=== PATIENT | male | born 1990 | race Caucasian/White ===

== ENCOUNTER 2020-06-05 00:12 | Emergency (ER) | payer MEDICAID, SELFPAY ==
--- NOTE | ~2020-06-05 | XR_ITS ---
EXAMINATION: RIGHT ANKLE AND RIGHT FOOT CLINICAL INFORMATION: Status post fall with pain COMPARISON: None TECHNIQUE: 2 views right ankle, 3 views right foot FINDINGS: Ankle: There has been prior surgery with a plate and screw device in the distal fibula and 2 screws through the medial malleolus. Some mild soft tissue swelling bilaterally but no acute fracture or ankle mortise instability is seen. Right foot: No fractures are seen. No significant arthritic changes are detected. XR/XR foot RT min 3V IMPRESSION: Postoperative changes ankle. No evidence of an acute injury.
--- NOTE | ~2020-06-05 | XR_ITS ---
EXAMINATION: RIGHT ANKLE AND RIGHT FOOT CLINICAL INFORMATION: Status post fall with pain COMPARISON: None TECHNIQUE: 2 views right ankle, 3 views right foot FINDINGS: Ankle: There has been prior surgery with a plate and screw device in the distal fibula and 2 screws through the medial malleolus. Some mild soft tissue swelling bilaterally but no acute fracture or ankle mortise instability is seen. Right foot: No fractures are seen. No significant arthritic changes are detected. XR/XR ankle RT min 3V IMPRESSION: Postoperative changes ankle. No evidence of an acute injury.
--- NOTE | ~2020-06-05 | CT_ITS ---
EXAMINATION: CT HEAD WITHOUT CONTRAST CLINICAL INFORMATION: Head trauma and syncope COMPARISON: None TECHNIQUE: Contiguous axial imaging was performed from the skull base to vertex without intravenous administration of contrast. This CT examination was performed using dose optimization techniques as appropriate, variously including the following: *Automated exposure control *Adjustment of mA and/or kV according to patient size (this includes techniques or standardized protocols for targeted exams where dose is matched to indication/reason for exam; i.e. extremities or head) *Use of iterative reconstruction technique DLP: 743 mGy-cm FINDINGS: There is no evidence of acute intracranial hemorrhage or territorial infarction. No abnormal mass effect or midline shift is seen. [place] to white matter differentiation is well preserved. No extra-axial fluid collections are identified. The ventricles are normal in size. There is no abnormal attenuation within the brain parenchyma. The osseous structures and soft tissues are normal. The mastoid air cells and visualized portions of the paranasal sinuses are well aerated. CT/CT head/brain wo con IMPRESSION: No acute intracranial pathology.
[2020-06-05 00:21] VITALS: PULSE 103; RESP 16; TEMP 36.7; O2SAT 100; BMI 23.6
--- NOTE | 2020-06-05 00:28 | ED_ITS ---
HPI - Fall General Chief Complaint: Fall Stated Complaint: FALL/LAC/CRISIS Time Seen by Provider: 06/05/20 00:28 Source: patient Mode of arrival: EMS Limitations: no limitations History of Present Illness HPI Narrative: Patient fell from standing. Hit his head and he passed out MD complaint: fall Onset (ago): minute(s) Fall from: standing Fall witnessed: yes, by family Place fall occurred: home Loss of consciousness: yes Length of LOC: minutes(s) Symptoms prior to fall: none Context: tripped/slipped Location of injury: head Related Data Previous Rx's Medication Instructions Recorded naproxen [Naprosyn] 500 mg PO BID #20 tab 06/05/20 Allergies Allergy/AdvReac Type Severity Reaction Status Date / Time No Known Allergies Allergy Verified 06/05/20 00:19 Review of Systems Constitutional: Constitutional: Reports no additional constitutional complaints Eyes: Eyes: Reports no additional eye complaints ENT: Denies dizziness Cardiovascular: Cardiovascular: Reports no additional cardiovascular complaints Respiratory: Respiratory: Reports as per HPI Gastrointestinal: Gastrointestinal: Reports no additional gastrointestinal complaints Musculoskeletal: Musculoskeletal: Reports no additional musculoskeletal complaints Integumentary/Breasts: Skin/Breast: Denies rash Neurologic: Reports system reviewed and no additional complaints, except as documented, Denies dizziness and Denies Sensory deficit (Neuro) Psychiatric: Psychiatric: Denies anxiety PMFSH Social History Social History Advance Directives: No Advance Directives Information Provided: No Physical Exam Vital Signs: Vital Signs: Last Vital Signs Temp 98.0 F 06/05/20 00:21 Pulse 103 H 06/05/20 00:21 Resp 16 06/05/20 00:21 Pulse Ox 100 06/05/20 00:21 Body Mass Index 23.6 Const: General: healthy appearing Nutritional Appearance: average body hab itus Orientation/consciousness: oriented to person and patient oriented x3 Limitations: no limitations HENMT: Head: Yes normal to inspection Ears: external ears normal General nose exam: Normal external nose present Mouth: Normal oral and palatal mucosa present and oropharynx normal Throat: Yes posterior oropharynx normal Eyes: General: appearance normal, both eyes and all related structures Neck: Other: supple Neck: Yes normal visual inspection Chest: Chest palpation & inspection: normal inspection of the chest Resp: Auscultation: clear to auscultation bilaterally Cardio: Jugular venous distension: no JVD Rate: regular rate Rhythm: regular rhythm Heart sounds: S1 normal heart sound present and S2 normal heart sound present GI: Inspection: Yes normal to inspection Palpation (GI): Soft to palpation, nontender and No hepatosplenomegaly present Auscultation: normal bowel sounds : General: Yes no CVA tenderness Back/Spine/Pelvis: Back: no CVA tenderness Skin: Other: some facial contusions Neuro: General: oriented to person and patient oriented x3 Cranial nerves: Yes CN's II-XII intact bilaterally Motor exam (neuro): 5/5 motor strength present throughout Sensory Exam: No Sensory deficit (Neuro) Extrem: Other: right foot with some swelling and ankle with old surgery Psych: Appearance: grossly normal MDM - Fall MDM Narrative Medical decision making narrative: no evidence of brain injury or foot or ankle fracture. Will dc home Differential Diagnosis Differential diagnosis: Likely fracture and concussion with loss of consciousness Imaging Data right foot: Radiologist's impression: no fracture right ankle: Radiologist's impression: old plates no new fracture CT scan - head: Radiologist's impression: no acute change Discharge Plan Discharge Clinical Impression: Concussion with loss of consciousness Qualifiers: Encounter type: initial encounter Qualified Code(s): S06.0X9A - Concussion with loss of consciousness of unspecified duration, initial encounter Foot sprain Qualifiers: Encounter type: initial encounter Laterality: right Qualified Code(s): S93.601A - Unspecified sprain of right foot, initial encounter Patient Disposition: Home, Self-Care Instructions: Concussion (ED), Foot Sprain (ED) Additional Instructions: ice off and on for 20 minutes Prescriptions: New naproxen [Naprosyn] 500 mg tablet 500 mg PO BID Qty: 20 RF: 0 Referrals: Physician,Unknown [Primary Care Provider] - 2 days
== END 2020-06-05 02:40 | disposition home or self-care (01) ==
PROVIDERS: Emergency Provider Emergency Medicine
DX: S06.0X0A Concussion without loss of consciousness, initial encounter (principal); S93.601A Unspecified sprain of right foot, initial encounter; S00.83XA Contusion of other part of head, initial encounter; W01.0XXA Fall on same level from slipping, tripping and stumbling without subsequent striking against object, initial encounter; Y93.9 Activity, unspecified; Y92.039 Unspecified place in apartment as the place of occurrence of the external cause; Y99.9 Unspecified external cause status
CPT/HCPCS: 70450; 73610; 73630; 99283; 99284